=== PATIENT | male | born 2000 | race Caucasian/White ===

== ENCOUNTER 2025-01-20 01:29 | Emergency (ER) | payer SELFPAY ==
[~2025-01-20] VITALS: Ht 175.3 cm; Wt 72.0 kg
[2025-01-20] MEDS ORDERED: PROPOFOL 200MG/20ML VIAL IV ONE (02:30)
[2025-01-20] MEDS: ONDANSETRON HCL 4MG/2ML INJ IV ONE (02:46)
[2025-01-20] MEDS: MORPHINE SULFATE 4 MG/ML INJ (FOR IV/IM USE) IV ONE (02:46)
[2025-01-20 03:02] VITALS: PULSE 104; RESP 19; O2SAT 100
[2025-01-20] MEDS ORDERED: IBUP-2029 MT (04:39)
[2025-01-20 05:30] VITALS: BP 103/58; PULSE 90; RESP 15; TEMP 37; O2SAT 99
== END 2025-01-20 05:30 | disposition home or self-care (01) ==
LOC: ER 03:08
DX: S43.005A Unspecified dislocation of left shoulder joint, initial encounter (principal); F10.90 Alcohol use, unspecified, uncomplicated; Z79.899 Other long term (current) drug therapy; X58.XXXA Exposure to other specified factors, initial encounter; Y93.9 Activity, unspecified; Y92.89 Other specified places as the place of occurrence of the external cause; Y99.8 Other external cause status
CPT/HCPCS: 73030; 94640; 23650; 96374; 96375; 99152; 99285; J2405; J2704; J2270; Z7610 ×4; 94070; 94664; 94760; A4565